=== PATIENT | male | born 1980 | race American Indian/Alaskan Native ===

== ENCOUNTER 2017-09-28 09:30 | Emergency (ER) | payer OTHER ==
[2017-09-28 09:43] VITALS: BP 124/83; PULSE 91; RESP 16; TEMP 98.2; O2SAT 100
--- NOTE | 2017-09-28 10:07 | C.PDOC ---
History Of Present Illness 37-year-old male presents to the emergency department with complaints of nonproductive cough, nasal congestion x1 week. Patient denies nausea/vomiting/ diarrhea, fever/chills, chest pain, shortness of breath, back pains. No other complaints at this time. Time Seen by Provider: 09/28/17 09:44 Chief Complaint (Nursing): Cough, Cold, Congestion History Per: Patient History/Exam Limitations: None Onset/Duration Of Symptoms: Days Current Symptoms Are (Timing): Still Present Symptoms Have Been: Continuous Severity: Mild Past Medical History Reviewed: Historical Data, Nursing Documentation, Vital Signs Vital Signs: Last Vital Signs Temp 98.2 F 09/28/17 09:41 Pulse 91 H 09/28/17 09:41 Resp 16 09/28/17 09:41 BP 124/83 09/28/17 09:41 Pulse Ox 100 09/28/17 10:23 - Medical History PMH: No Chronic Diseases Family History: States: No Known Family Hx - Social History Hx Alcohol Use: No Hx Substance Use: No - Immunization History Hx Influenza Vaccination: Yes Review Of Systems Except As Marked, All Systems Reviewed And Found Negative. Constitutional: Negative for: Fever ENT: Positive for: Nose Congestion Cardiovascular: Negative for: Chest Pain Respiratory: Positive for: Cough. Negative for: Shortness of Breath, Sputum Gastrointestinal: Negative for: Nausea, Vomiting, Abdominal Pain, Diarrhea Genitourinary: Negative for: Dysuria Musculoskeletal: Negative for: Back Pain Skin: Negative for: Rash Physical Exam - Physical Exam Appears: Well, Non-toxic, No Acute Distress Skin: Normal Color, Warm, Dry, No Rash Eye(s): bilateral: Normal Inspection Nose: Normal, No Flaring, Discharge (clear rhinorrhea) Oral Mucosa: Moist Lips: Normal Appearing Throat: Normal, No Erythema, No Exudate Neck: Supple Cardiovascular: Rhythm Regular Respiratory: Normal Breath Sounds, No Rales, No Rhonchi, No Wheezing Neurological/Psych: Oriented x3 ED Course And Treatment O2 Sat by Pulse Oximetry: 100 (RA) Pulse Ox Interpretation: Normal Progress Note: Patient given PO Tessalon and Sudafed in ED. Rxs for same given. Patient instructed to drink plenty of fluids, and follow up with PMD/ clinic in 1-2 days. He understands he should return to ED if symptoms worsen. Disposition Counseled Patient/Family Regarding: Diagnosis, Need For Followup, Rx Given - Disposition Referrals: Dali Jerome MD [Staff Provider] - Disposition: HOME/ ROUTINE Disposition Time: 10:05 Condition: STABLE Additional Instructions: FOLLOW UP WITH YOUR DOCTOR IN 1-2 DAYS USE MEDICATIONS DIRECTED DRINK PLENTY OF FLUIDS RETURN TO ER IF SYMPTOMS WORSEN Prescriptions: Benzonatate [Tessalon Perles] 100 mg PO BID PRN #15 sgl PRN Reason: Cough Phenol/Glycerin [Chloraseptic [place]] 1 spray MM Q6 PRN #1 spray PRN Reason: THROAT PAIN Pseudoephedrine [Sudafed] 60 mg PO Q6 PRN #12 tab PRN Reason: Nasal Congestion Instructions: Cough, Runny Nose, and the Common Cold (DC) Forms: [employer] (Croatian) Print Language: SAO TOMEAN - POA Present On Arrival: None - Clinical Impression Clinical Impression: Viral disease, Upper respiratory infection - Scribe Statement The provider has reviewed the documentation as recorded by the Scribe (Stephanie Dorman) All medical record entries made by the Scribe were at my direction and personally dictated by me. I have reviewed the chart and agree that the record accurately reflects my personal performance of the history, physical exam, medical decision making, and the department course for this patient. I have also personally directed, reviewed, and agree with the discharge instructions and disposition.
== END 2017-09-28 10:16 | disposition home or self-care (01) ==
LOC: C.ER 09:30
DX: J06.9 Acute upper respiratory infection, unspecified (principal); F17.210 Nicotine dependence, cigarettes, uncomplicated

== ENCOUNTER 2017-10-13 18:50 | Emergency (ER) | payer OTHER ==
[2017-10-13] MEDS ORDERED: Sodium Chloride 0.9% 1,000 ML IV ONE (19:53)
--- NOTE | 2017-10-13 19:53 | C.PDOC ---
History Of Present Illness 37 year old male presents to the ED c/o anterior left lateral chest wall pain as well as left flank abdominal pain that has been going on for the past 3-4 days. Patient reports pain worsens with deep breathing and palpation. Patient denies nausea, vomit, diarrhea, SOB, dysuria, hematuria. Chief Complaint (Nursing): Abdominal Pain History Per: Patient History/Exam Limitations: no limitations Onset/Duration Of Symptoms: Days Current Symptoms Are (Timing): Still Present Location Of Pain/Discomfort: Diffuse Radiation Of Pain To:: Chest Quality Of Discomfort: "Pain" Associated Symptoms: denies: Nausea, Vomiting, Constipation Exacerbating Factors: Movement, Deep Breaths Alleviating Factors: None Recent travel outside of the [place]: No Additional History Per: Patient Past Medical History Reviewed: Historical Data, Nursing Documentation, Vital Signs Vital Signs: Last Vital Signs Temp 98.6 F 10/13/17 19:10 Pulse 91 H 10/13/17 19:10 Resp 20 10/13/17 19:10 BP 106/62 10/13/17 19:10 Pulse Ox 96 10/13/17 19:53 - Medical History PMH: No Chronic Diseases Surgical History: No Surg Hx Family History: States: Unknown Family Hx - Social History Hx Alcohol Use: No Hx Substance Use: No - Immunization History Hx Influenza Vaccination: Yes Review Of Systems Constitutional: Negative for: Fever, Chills Cardiovascular: Positive for: Chest Pain Respiratory: Negative for: Cough, Shortness of Breath Gastrointestinal: Positive for: Abdominal Pain Skin: Negative for: Rash Neurological: Negative for: Weakness, Numbness Physical Exam - Physical Exam Appears: Non-toxic, No Acute Distress Skin: Normal Color, Warm, Dry Head: Atraumatic, Normacephalic Eye(s): bilateral: Normal Inspection Nose: No Discharge Oral Mucosa: Moist Neck: Normal ROM, Supple Chest: Symmetrical, Tenderness (left anterior wall ) Cardiovascular: Rhythm Regular, No Murmur Respiratory: Normal Breath Sounds, No Rales, No Rhonchi, No Wheezing Gastrointestinal/Abdominal: Soft, Tenderness (left anterior lumbar, LLQ area ), No Guarding, No Rebound Extremity: Normal ROM, No Tenderness, No Swelling Neurological/Psych: Oriented x3 Gait: Steady ED Course And Treatment O2 Sat by Pulse Oximetry: 96 (On RA) Pulse Ox Interpretation: Normal Medical Decision Making Medical Decision Making: Impression: chest and abdominal pain Plan: * EKG * CXR * UA * Labs * IV fluids * Toradol 30 mg IVP Disposition - Disposition Forms: [facility] (Arabic) - Scribe Statement The provider has reviewed the documentation as recorded by the Scribe Toño Lam All medical record entries made by the Scribe were at my direction and personally dictated by me. I have reviewed the chart and agree that the record accurately reflects my personal performance of the history, physical exam, medical decision making, and the department course for this patient. I have also personally directed, reviewed, and agree with the discharge instructions and disposition.
--- NOTE | 2017-10-13 19:55 | C.PDOC ---
History Of Present Illness 37 year old male presents to the ED c/o anterior left lateral chest wall pain as well as left flank abdominal pain that has been going on for the past 3-4 days. Patient reports pain worsens with deep breathing and palpation. Patient denies nausea, vomit, diarrhea, SOB, dysuria, hematuria. Chief Complaint (Nursing): Abdominal Pain History Per: Patient History/Exam Limitations: clinical condition Onset/Duration Of Symptoms: Days Current Symptoms Are (Timing): Still Present Location Of Pain/Discomfort: Diffuse Radiation Of Pain To:: Chest Quality Of Discomfort: "Pain" Exacerbating Factors: Movement, Deep Breaths Alleviating Factors: None Recent travel outside of the [place]: No Additional History Per: Patient Past Medical History Reviewed: Historical Data, Nursing Documentation, Vital Signs Vital Signs: Last Vital Signs Temp 98.3 F 10/13/17 22:16 Pulse 55 L 10/13/17 22:16 Resp 18 10/13/17 22:16 BP 110/63 10/13/17 22:16 Pulse Ox 96 10/13/17 23:44 - Medical History PMH: No Chronic Diseases Surgical History: No Surg Hx Family History: States: Unknown Family Hx - Social History Hx Alcohol Use: No Hx Substance Use: No - Immunization History Hx Influenza Vaccination: Yes Review Of Systems Constitutional: Negative for: Fever, Chills Cardiovascular: Positive for: Chest Pain. Negative for: Palpitations Respiratory: Negative for: Cough, Shortness of Breath Gastrointestinal: Positive for: Abdominal Pain Skin: Negative for: Rash Neurological: Negative for: Weakness, Numbness Physical Exam - Physical Exam Appears: Non-toxic, No Acute Distress Skin: Normal Color, Warm, Dry Head: Atraumatic, Normacephalic Eye(s): bilateral: Normal Inspection Nose: No Discharge Oral Mucosa: Moist Neck: Normal ROM, Supple Chest: Symmetrical, Tenderness (left anterior wall) Cardiovascular: Rhythm Regular, No Murmur Respiratory: Normal Breath Sounds, No Rales, No Rhonchi, No Wheezing Gastrointestinal/Abdominal: Soft, Tenderness (left anterior lumbar, LLQ area), No Guarding, No Rebound Extremity: Normal ROM, No Tenderness, No Swelling Neurological/Psych: Oriented x3 Gait: Steady ED Course And Treatment - Laboratory Results Result Diagrams: 10/13/17 20:03 10/13/17 20:03 ECG: Interpreted By Me, Viewed By Me ECG Rhythm: Sinus Rhythm ECG Interpretation: Normal, No Acute Changes Interpretation Of ECG: NSR, normal tracings Rate From EC O2 Sat by Pulse Oximetry: 96 (ON RA) Pulse Ox Interpretation: Normal - CT Scan/US CT abdomen/pelvis Other Rad Studies (CT/US): Read By Radiologist, Radiology Report Reviewed CT/US Interpretation: FINDINGS: Lung bases: Unremarkable. No mass. No consolidation. ABDOMEN: Liver: Unremarkable. No suspicious lesions are seen. Gallbladder and bile ducts: The gallbladder is contracted but otherwise normal. Pancreas: Unremarkable. No ductal dilation. Spleen: Unremarkable. No splenomegaly. Adrenals: Unremarkable. No mass. Kidneys and ureters: No obstructing renal stones or hydronephrosis. No solid mass. Normal. appearance of both ureters, and renal pelvises. Stomach and bowel: Bowel loops appear within normal limits, no signs of wall thickening, mucosal. edema, or bowel distention. Appendix: A normal appendix seen in the right lower quadrant. PELVIS: Bladder: The bladder is decompressed but otherwise normal. No stones. Reproductive: Unremarkable as visualized. ABDOMEN and PELVIS: Intraperitoneal space: Unremarkable. No free air. No significant fluid collection. Bones/joints : No acute fracture. No dislocation. Soft tissues: Unremarkable. Vasculature: Unremarkable. No abdominal aortic aneurysm. Lymph nodes: Unremarkable. No enlarged lymph nodes. IMPRESSION: No acute findings or significant abnormalities are noted within the abdomen and pelvis. Thank you for allowing us to participate in the care of your patient. Dictated and Authenticated by: Juan Miguel Hart MD. 10/13/2017 10:14 PM Eastern Time ([place] & [place]) Medical Decision Making Medical Decision Making: Impression: chest and abdominal pain Plan: EKG CXR UA Labs IV fluids Toradol 30 mg IVP Added on CT abdomen/pelvis Labs reviewed, urine indicative of UTI. Patient given initial dose of Cipro in the ED. 23:[address] results with patient, all questions answered. Patient is medically stable for d/c home. Advised to take meds as prescribed and follow up with primary doctor in 2-3 days Disposition Counseled Patient/Family Regarding: Studies Performed, Diagnosis, Need For Followup, Rx Given - Disposition Referrals: [facility] [Outside] Disposition: HOME/ ROUTINE Disposition Time: 23:31 Condition: STABLE Prescriptions: Ciprofloxacin [Cipro] 1 tab PO BID #14 tab Naproxen 375 mg PO TIDPC #20 tablet Instructions: Urinary Tract Infections in Adults, Costochondritis Forms: [facility] (Irish) - POA Present On Arrival: None - Clinical Impression Clinical Impression: Chest wall pain, Urinary tract infection - Scribe Statement The provider has reviewed the documentation as recorded by the Scribe Toño Lam All medical record entries made by the Scribe were at my direction and personally dictated by me. I have reviewed the chart and agree that the record accurately reflects my personal performance of the history, physical exam, medical decision making, and the department course for this patient. I have also personally directed, reviewed, and agree with the discharge instructions and disposition.
[2017-10-13] MEDS ORDERED: Sodium Chloride 0.9% 1,000 ML ONE (20:04)
[2017-10-13 20:06] LABS: BASO # 0.1 K/uL (0.0-0.2); BASO % 1.8 % (0.0-2.0); EOS # 0.1 K/uL (0.0-0.7); EOS % 1.1 % (0.0-4.0); HEMOGLOBIN 14.3 g/dL (12.0-18.0); LYMPH % 29.7 % (20.0-40.0); MEAN CORPUSCULAR HEMOGLOBIN 31.2 pg (27.0-31.0); MEAN CORPUSCULAR HGB CONC 34.3 g/dL (33.0-37.0); MEAN PLATELET VOLUME 7.6 fL (7.2-11.7); MONO # 0.6 K/uL (0.0-0.8); MONO % 9.5 % (0.0-10.0); NEUT # 3.9 K/uL (1.8-7.0); NEUT % 57.9 % (50.0-75.0); NRBC % 0.1 % (0.0-2.0); RBC 4.6 Mil/uL (4.40-5.90); RED CELL DISTRIBUTION WIDTH 13.9 % (11.5-14.5); WHITE BLOOD COUNT 6.8 K/uL (4.8-10.8)
[2017-10-13 20:19] LABS: ALB/GLOB RATIO 1.4 (1.0-2.1); ALBUMIN 4.4 g/dL (3.5-5.0); ALT/SGPT 20 U/L (21-72); AST/SGOT 24 U/L (17-59); BLOOD UREA NITROGEN 14 mg/dL (9-20); CALCIUM 9.3 mg/dl (8.6-10.4); GFR AFRICAN-AMERICAN > 60; GFR NON-AFRICAN AMERICAN > 60; LIPASE 110 U/L (23-300)
[2017-10-13 20:51] LABS: URINE BILIRUBIN NEGATIVE (NEGATIVE); URINE BLOOD NEGATIVE (NEGATIVE); URINE CLARITY Clear (Clear); URINE COLOR Yellow (YELLOW); URINE GLUCOSE (UA) NORMAL (Normal); URINE LEUKOCYTE ESTERASE NEG Leu/uL (Negative); URINE PROTEIN NEGATIVE (NEGATIVE)
[2017-10-13 22:16] VITALS: RESP 18; TEMP 98.3
[2017-10-13 23:58] VITALS: BP 106/65; PULSE 62; O2SAT 98
--- NOTE | 2017-10-14 09:35 | CT ---
PROCEDURE: CT Abdomen and Pelvis without intravenous contrast HISTORY: left flank pain COMPARISON: None. TECHNIQUE: Multiple contiguous axial images were performed through the abdomen and pelvis without intravenous contrast. Subsequently, sagittal and coronal reformatted images were obtained. Radiation dose: Total exam DLP = two hundred fourteen mGy-cm. This CT exam was performed using one or more of the following dose reduction techniques: Automated exposure control, adjustment of the mA and/or kV according to patient size, and/or use of iterative reconstruction technique. FINDINGS: LOWER THORAX: Mild atelectasis at the lung bases. LIVER: Unremarkable. No gross lesion or ductal dilatation. GALLBLADDER AND BILE DUCTS: Contracted gallbladder. PANCREAS: Unremarkable. No gross lesion or ductal dilatation. SPLEEN: Unremarkable. ADRENALS: Unremarkable. No mass. KIDNEYS AND URETERS: Unremarkable. No hydronephrosis. No solid mass. VASCULATURE: Unremarkable. No aortic aneurysm. BOWEL: Unremarkable. No obstruction. No gross mural thickening. APPENDIX: Unremarkable. Normal appendix. PERITONEUM: Unremarkable. No free fluid. No free air. LYMPH NODES: Unremarkable. No enlarged lymph nodes. BLADDER: Decompressed urinary bladder. REPRODUCTIVE: Unremarkable. BONES: No acute fracture. OTHER FINDINGS: None. IMPRESSION: Negative acute. Additional findings as above. These findings were preliminarily reported at 10:14 p.m. on 10/13/[address] Juan Miguel Hart from [employer].
--- NOTE | 2017-10-14 11:23 | CARD ---
APPROVED REPORT EKG Measurement Heart [id number] <Conclusion> Normal sinus rhythm Normal ECG
--- NOTE | 2017-10-14 12:01 | RAD ---
HISTORY: chest pain COMPARISON: No prior. TECHNIQUE: Chest PA and lateral FINDINGS: LUNGS: No active pulmonary disease. PLEURA: No significant pleural effusion identified. No pneumothorax apparent. CARDIOVASCULAR: Normal. OSSEOUS STRUCTURES: No significant abnormalities. VISUALIZED UPPER ABDOMEN: Normal. OTHER FINDINGS: None. IMPRESSION: No active disease.
== END 2017-10-14 | disposition home or self-care (01) ==
LOC: C.ER 18:50
DX: R07.89 Other chest pain (principal); N39.0 Urinary tract infection, site not specified
CPT/HCPCS: 71046; 74176; 80053; 81001; 83690; 84484; 85025; 85378; 87086; 93005; 96374; 99285; J1885; J7040

== ENCOUNTER 2017-10-20 14:51 | Emergency (ER) | payer OTHER ==
[2017-10-20 15:35] VITALS: RESP 18
[2017-10-20] MEDS ORDERED: Sodium Chloride 0.9% 1,000 ML IV ONE (17:44)
--- NOTE | 2017-10-20 18:10 | C.PDOC ---
History Of Present Illness 37 year old male presents to the ED for evaluation of epigastric abdominal pain , vomiting (non-bloody/nonbilious), and diarrhea which began this morning. Patient admits to drinking alcohol yesterday. Patient denies fever, chills, dysuria, and hematuria. Time Seen by Provider: 10/20/17 17:34 Chief Complaint (Nursing): Abdominal Pain History Per: Patient History/Exam Limitations: no limitations Onset/Duration Of Symptoms: Hrs Current Symptoms Are (Timing): Still Present Location Of Pain/Discomfort: Epigastric Radiation Of Pain To:: None Quality Of Discomfort: "Pain" Associated Symptoms: Nausea, Vomiting, Diarrhea. denies: Fever, Chills, Urinary Symptoms Additional History Per: Patient Past Medical History Reviewed: Historical Data, Nursing Documentation, Vital Signs Vital Signs: Last Vital Signs Temp 98 F 10/20/17 15:33 Pulse 72 10/20/17 15:33 Resp 18 10/20/17 15:33 BP 104/69 10/20/17 15:33 Pulse Ox 98 10/20/17 18:44 - Medical History PMH: No Chronic Diseases Surgical History: No Surg Hx Family History: States: Unknown Family Hx - Social History Hx Alcohol Use: Yes Hx Substance Use: No - Immunization History Hx Influenza Vaccination: Yes Review Of Systems Constitutional: Negative for: Fever, Chills Gastrointestinal: Positive for: Nausea, Vomiting, Abdominal Pain (epigastric ), Diarrhea Genitourinary: Negative for: Dysuria, Hematuria Physical Exam - Physical Exam Appears: Non-toxic, No Acute Distress Skin: Normal Color, Warm, Dry Head: Atraumatic, Normacephalic Eye(s): bilateral: Normal Inspection Oral Mucosa: Moist Neck: Supple Chest: Symmetrical, No Deformity, No Tenderness Cardiovascular: Rhythm Regular, No Murmur Respiratory: Normal Breath Sounds, No Rales, No Rhonchi, No Wheezing Gastrointestinal/Abdominal: Soft, Tenderness (epigastric ), No Guarding Extremity: Normal ROM, Capillary Refill (less than 2 seconds ) Neurological/Psych: Oriented x3, Normal Speech, Normal Cognition ED Course And Treatment - Laboratory Results Result Diagrams: 10/20/17 18:20 10/20/17 18:20 O2 Sat by Pulse Oximetry: 98 (on RA) Pulse Ox Interpretation: Normal Medical Decision Making Medical Decision Making: Assessment: abdominal pain, vomiting, diarrhea Plan: * Bloodwork * Pepcid IVP * Toradol IVO * Zofran IVP * IV Fluids * reassess and disposition Progress: Bloodwork ordered and reviewed. Pepcid IVP, Toradol IVP, Zofran IVP and IV Fluids administered. On re-exam, patient is resting comfortably, showing no signs of distress and reports an improvement in symptoms. Patient is stable for discharge and is advised to f/u with PMD/clinic within 1-2 days for further evaluation and/or return to the ED if symptoms persist or worsen. Disposition Counseled Patient/Family Regarding: Studies Performed, Diagnosis, Need For Followup, Rx Given - Disposition Referrals: [facility] [Outside] Disposition: HOME/ ROUTINE Disposition Time: 18:42 Additional Instructions: follow up with medical clinic in 2 days call to make an appointment take medications as needed stop excessive alcohol use return to ER if symptoms worsens or progress Prescriptions: Famotidine [Pepcid] 20 mg PO BID #20 tab Ondansetron ODT [Zofran ODT] 4 mg PO TID PRN #12 odt PRN Reason: Nausea/Vomiting Instructions: Diarrhea in Adolescents and Adults, Nausea and Vomiting, Adult Forms: General Discharge Instructions, [facility] (Latvian), Work Excuse - Clinical Impression Clinical Impression: Alcoholic gastritis - Scribe Statement The provider has reviewed the documentation as recorded by the Scribe (Jaycee Butt) Provider Attestation: All medical record entries made by the Scribe were at my direction and personally dictated by me. I have reviewed the chart and agree that the record accurately reflects my personal performance of the history, physical exam, medical decision making, and the department course for this patient. I have also personally directed, reviewed, and agree with the discharge instructions and disposition.
[2017-10-20 18:26] LABS: BASO % 0.5 % (0.0-2.0); EOS % 0.4 % (0.0-4.0); HEMOGLOBIN 14.7 g/dL (12.0-18.0); LYMPH # 2.6 K/uL (1.0-4.3); LYMPH % 27.7 % (20.0-40.0); MEAN CELL VOLUME 91.6 fL (80.0-94.0); MEAN CORPUSCULAR HEMOGLOBIN 31.3 pg (27.0-31.0); MEAN CORPUSCULAR HGB CONC 34.1 g/dL (33.0-37.0); MEAN PLATELET VOLUME 7.8 fL (7.2-11.7); MONO # 0.6 K/uL (0.0-0.8); MONO % 6.5 % (0.0-10.0); NEUT % 64.9 % (50.0-75.0); RBC 4.69 Mil/uL (4.40-5.90); RED CELL DISTRIBUTION WIDTH 14.2 % (11.5-14.5); WHITE BLOOD COUNT 9.2 K/uL (4.8-10.8)
[2017-10-20] MEDS ORDERED: Sodium Chloride 0.9% 1,000 ML ONE (18:27)
[2017-10-20 18:39] LABS: ALB/GLOB RATIO 1.4 (1.0-2.1); ALBUMIN 4.7 g/dL (3.5-5.0); ALT/SGPT 27 U/L (21-72); AST/SGOT 28 U/L (17-59); BLOOD UREA NITROGEN 15 mg/dL (9-20); CALCIUM 9.6 mg/dl (8.6-10.4); GFR AFRICAN-AMERICAN > 60; GFR NON-AFRICAN AMERICAN > 60; LIPASE 88 U/L (23-300)
[2017-10-20 19:04] VITALS: BP 166/85; PULSE 60; TEMP 97.9; O2SAT 99
== END 2017-10-20 19:04 | disposition home or self-care (01) ==
LOC: C.ER 14:51
DX: K29.20 Alcoholic gastritis without bleeding (principal)
CPT/HCPCS: 80053; 83690; 85025; 96374; 96375; 99284; J1885; J2405; J7040

== ENCOUNTER 2017-10-28 13:55 | Emergency (ER) | payer SELFPAY ==
[2017-10-28 14:14] VITALS: BP 124/78; PULSE 82; RESP 18; TEMP 98.8; O2SAT 100
--- NOTE | 2017-10-28 15:19 | C.PDOC ---
History Of Present Illness 37 year old male presents to the ED c/o on going chest congestion, dry cough. Patient reports he recently finished a course of antibiotics that he finished 4 days ago. Patient is a smoker. Patient denies fever, chills, nausea, vomit, diarrhea, recent travel, sick contacts. Time Seen by Provider: 10/28/17 14:17 Chief Complaint (Nursing): Cough, Cold, Congestion History Per: Patient History/Exam Limitations: no limitations Onset/Duration Of Symptoms: Days Current Symptoms Are (Timing): Still Present Location Of Pain: Throat Sick Contacts (Context): None Associated Symptoms: Cough Recent travel outside of the [place]: No Additional History Per: Patient Past Medical History Reviewed: Historical Data, Nursing Documentation, Vital Signs Vital Signs: Last Vital Signs Temp 98.8 F 10/28/17 14:11 Pulse 82 10/28/17 14:11 Resp 18 10/28/17 14:11 BP 124/78 10/28/17 14:11 Pulse Ox 100 10/28/17 15:19 - Medical History PMH: No Chronic Diseases Surgical History: No Surg Hx Family History: States: Unknown Family Hx - Social History Hx Alcohol Use: Yes Hx Substance Use: No - Immunization History Hx Influenza Vaccination: Yes Review Of Systems Except As Marked, All Systems Reviewed And Found Negative. ENT: Positive for: Nose Congestion Respiratory: Positive for: Cough Physical Exam - Physical Exam Appears: Non-toxic, No Acute Distress Skin: Normal Color, Warm, Dry Head: Atraumatic, Normacephalic Eye(s): bilateral: Normal Inspection Ear(s): Bilateral: Normal Nose: No Discharge Oral Mucosa: Moist Throat: Normal, No Erythema, No Exudate Respiratory: Normal Breath Sounds, No Rales, No Rhonchi, No Wheezing Neurological/Psych: Oriented x3 Gait: Steady ED Course And Treatment O2 Sat by Pulse Oximetry: 100 (ON RA) Pulse Ox Interpretation: Normal - Radiology CXR: Interpreted by Me, Viewed By Me CXR Interpretation: Yes: No Acute Disease. No: Infiltrates Medical Decision Making Medical Decision Making: Impression: URI Patient will be D/C home and advised with his PMD in 2 days. Disposition Counseled Patient/Family Regarding: Studies Performed, Diagnosis, Need For Followup, Rx Given - Disposition Referrals: [facility] at [facility] [Outside] Disposition: HOME/ ROUTINE Disposition Time: 15:17 Condition: STABLE Additional Instructions: follow up with your doctor or medical clinic in 2 days call to make an appointment continue your medications at home return to ER if symptoms worsens or progress Prescriptions: Albuterol 0.083% [Albuterol Sulfate 3 Ml] 3 ml IH Q6 PRN #50 neb PRN Reason: Cough And Congestion Benzonatate [Tessalon Perles] 100 mg PO BID PRN #14 tab PRN Reason: Cough And Congestion Instructions: Upper Respiratory Infection (ED) Forms: General Discharge Instructions, [facility] (Andorran), Work Excuse - Clinical Impression Clinical Impression: Upper respiratory infection - Scribe Statement The provider has reviewed the documentation as recorded by the Scribe Toño Lam All medical record entries made by the Scribe were at my direction and personally dictated by me. I have reviewed the chart and agree that the record accurately reflects my personal performance of the history, physical exam, medical decision making, and the department course for this patient. I have also personally directed, reviewed, and agree with the discharge instructions and disposition.
--- NOTE | 2017-10-28 17:47 | RAD ---
HISTORY: Cough COMPARISON: 10/13/2017 TECHNIQUE: Chest PA and lateral FINDINGS: LUNGS: No active pulmonary disease. PLEURA: No significant pleural effusion identified. No pneumothorax apparent. CARDIOVASCULAR: Normal. OSSEOUS STRUCTURES: No significant abnormalities. VISUALIZED UPPER ABDOMEN: Normal. OTHER FINDINGS: None. IMPRESSION: No active disease.
== END 2017-10-28 15:30 | disposition home or self-care (01) ==
LOC: C.ER 13:55
DX: J06.9 Acute upper respiratory infection, unspecified (principal); F17.210 Nicotine dependence, cigarettes, uncomplicated

== ENCOUNTER 2018-02-22 18:48 | Emergency (ER) | payer SELFPAY ==
[2018-02-22 18:57] VITALS: BMI 24.0
[2018-02-22 18:59] VITALS: BP 106/65; PULSE 74; RESP 18; TEMP 98.4; O2SAT 100
--- NOTE | 2018-02-22 19:07 | C.PDOC ---
History Of Present Illness 28-year-old male, presents to the emergency department with complaints of pain to right wisdom tooth ongoing for the past few days. Pt took OTC pain meds with minimal relief. He denies any nausea/vomiting, fever. No other complaints at this time. Time Seen by Provider: 02/22/18 19:02 Chief Complaint (Nursing): Dental Pain Past Medical History Reviewed: Historical Data, Nursing Documentation, Vital Signs Vital Signs: Last Vital Signs Temp 98.4 F 02/22/18 18:57 Pulse 74 02/22/18 18:57 Resp 18 02/22/18 18:57 BP 106/65 02/22/18 18:57 Pulse Ox 100 02/22/18 19:43 Family History: States: No Known Family Hx - Social History Hx Alcohol Use: Yes Hx Substance Use: No - Immunization History Hx Influenza Vaccination: Yes Review Of Systems Constitutional: Negative for: Fever ENT: Positive for: Other (tooth pain). Negative for: Ear Pain, Ear Discharge, Nose Discharge, Nose Congestion, Throat Pain Gastrointestinal: Negative for: Nausea, Vomiting Neurological: Negative for: Headache, Dizziness Physical Exam - Physical Exam Appears: Non-toxic, No Acute Distress Skin: Normal Color, Warm, Dry, No Rash Head: Atraumatic, Normacephalic Eye(s): bilateral: Normal Inspection Nose: Normal Oral Mucosa: Moist Lips: Normal Appearing Teeth: Other (Right lower wisdom tooth, impacted, +gingival swelling. No abscess , no blood) Throat: No Erythema, No Exudate, No Drooling, No Mass Neck: Normal ROM, Supple Respiratory: No Accessory Muscle Use (no apparent respiratory distress) Neurological/Psych: Oriented x3, Normal Speech ED Course And Treatment O2 Sat by Pulse Oximetry: 100 Medical Decision Making Medical Decision Making: Plan: Pt treated with Penicillin and Tyl/Codeine for pain, discharged for outpatient f /u with dentist. Disposition Counseled Patient/Family Regarding: Diagnosis, Need For Followup, Rx Given - Disposition Referrals: Hector Sheth [Medical Doctor] - Disposition: HOME/ ROUTINE Disposition Time: 19:20 Condition: GOOD Additional Instructions: FOLLOW UP WITH DENTIST TAKE PAIN MEDICINE NEEDED TAKE ANTIBIOTIC Prescriptions: Acetaminophen with Codeine [Tylenol with Codeine No. 3 300 mg-30 mg] 1 tab PO Q8 PRN #20 tab PRN Reason: Pain, Moderate (4-7) Penicillin VK [Penicillin VK Tab] 1 tab PO BID #20 tab Instructions: Tooth Decay, Adult (DC) Forms: [facility] (Telugu) - POA Present On Arrival: None - Clinical Impression Clinical Impression: Dental caries - Scribe Statement The provider has reviewed the documentation as recorded by the Scribe (Stephanie Dorman) All medical record entries made by the Scribe were at my direction and personally dictated by me. I have reviewed the chart and agree that the record accurately reflects my personal performance of the history, physical exam, medical decision making, and the department course for this patient. I have also personally directed, reviewed, and agree with the discharge instructions and disposition.
[2018-02-22] MEDS ORDERED: Acetaminophen-Codeine 300/30 mg Tab PO STA (19:08)
[2018-02-22] MEDS ORDERED: Acetaminophen-Codeine 300/30 mg Tab PO ONE (19:14)
== END 2018-02-22 19:20 | disposition home or self-care (01) ==
LOC: C.ER 18:48
DX: K02.9 Dental caries, unspecified (principal)

== ENCOUNTER 2018-03-02 17:59 | Emergency (ER) | payer OTHER ==
[2018-03-02 17:59] VITALS: BMI 24.0
[2018-03-02 18:26] VITALS: BP 132/74; PULSE 73; RESP 16; TEMP 97.8; O2SAT 98
--- NOTE | 2018-03-02 19:08 | C.PDOC ---
History Of Present Illness 37 year old male presents to the ED c/o back pain. Patient reports that yesterday was helping his cousin move some furniture which caused him to have back pain. Patient states pain worsens with movement and when walking pain radiates to the leg. Patient states he has been taking Motrin for pain. Patient denies fall, weakness, numbness, dysuria, hematuria, bowel incontinence, saddle anesthesia. Time Seen by Provider: 03/02/18 18:29 Chief Complaint (Nursing): Back Pain History Per: Patient History/Exam Limitations: no limitations Onset/Duration Of Symptoms: Days Current Symptoms Are (Timing): Still Present Quality Of Discomfort: "Pain" Severity: None Previous Symptoms: None Exacerbating Factor(s): Movement Recent travel outside of the [place]: No Past Medical History Reviewed: Historical Data, Nursing Documentation, Vital Signs Vital Signs: Last Vital Signs Temp 97.8 F 03/02/18 18:24 Pulse 73 03/02/18 18:24 Resp 16 03/02/18 18:24 BP 132/74 03/02/18 18:24 Pulse Ox 98 03/02/18 20:02 - Medical History PMH: No Chronic Diseases Surgical History: No Surg Hx Family History: States: Unknown Family Hx - Social History Hx Alcohol Use: Yes Hx Substance Use: No - Immunization History Hx Influenza Vaccination: Yes Review Of Systems Constitutional: Negative for: Fever, Chills Cardiovascular: Negative for: Chest Pain, Palpitations Respiratory: Negative for: Cough, Shortness of Breath Gastrointestinal: Positive for: Abdominal Pain. Negative for: Nausea, Vomiting Musculoskeletal: Positive for: Back Pain Skin: Negative for: Rash Neurological: Negative for: Weakness, Numbness Physical Exam - Physical Exam Appears: Non-toxic, No Acute Distress Skin: Normal Color, Warm, Dry, No Rash Head: Atraumatic, Normacephalic Eye(s): bilateral: Normal Inspection, PERRL, EOMI Oral Mucosa: Moist Neck: Normal ROM, Supple Chest: Symmetrical Cardiovascular: Rhythm Regular, No Friction Rub, No Murmur Respiratory: Normal Breath Sounds, No Rales, No Rhonchi, No Wheezing Gastrointestinal/Abdominal: Soft, No Tenderness, No Guarding, No Rebound Back: No Vertebral Tenderness, Muscle Spasm (left sided lower back) Extremity: Normal ROM, No Tenderness, No Swelling Neurological/Psych: Oriented x3, Normal Speech, Normal Motor, Normal Sensation Gait: Steady ED Course And Treatment O2 Sat by Pulse Oximetry: 98 (ON RA) Pulse Ox Interpretation: Normal Medical Decision Making Medical Decision Making: Plan: * Flexeril 10 mg PO On re-exam, the patient is resting comfortably. Lungs are CTA, heart is RRR, abdomen is soft, non-tender and tolerating PO well. Follow up with the medical doctor within 1-2 days. Return if worsened. Disposition - Disposition Referrals: [facility] [Outside] Disposition: HOME/ ROUTINE Disposition Time: 19:04 Condition: GOOD Additional Instructions: Follow up with the medical doctor within 1-2 days. Return if worsened. 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 - Scribe Statement The provider has reviewed the documentation as recorded by the Scribe Toño Lam All medical record entries made by the Scribe were at my direction and personally dictated by me. I have reviewed the chart and agree that the record accurately reflects my personal performance of the history, physical exam, medical decision making, and the department course for this patient. I have also personally directed, reviewed, and agree with the discharge instructions and disposition.
== END 2018-03-02 19:21 | disposition home or self-care (01) ==
LOC: C.ER 17:59
DX: M62.830 Muscle spasm of back (principal)

== ENCOUNTER 2018-03-15 14:11 | Emergency (ER) | payer OTHER ==
[2018-03-15 14:11] VITALS: BMI 24.0
[2018-03-15] MEDS ORDERED: Sodium Chloride 0.9% 1,000 ML IV ONE (15:17)
--- NOTE | 2018-03-15 15:17 | C.PDOC ---
History Of Present Illness 37 y/o male presents to ED c/o n/v/d onset this morning. Pt states he was heavily drinking last night. He complains of mild abdominal cramping "from all the vomiting". Denies other associated symptoms. NVD ONSET THIS MORNING. PS WAS HEAVILY DRINKING LAST NIGHT. MILD ABD CRAMPING "FROM ALL THE VOMITING". DENIES OTHER ASSOC SX EXAM MILD DIST NONTOXIC ABD SOFT NT ND NO R/G REMAINDER NEG Time Seen by Provider: 03/15/18 14:52 Chief Complaint (Nursing): Abdominal Pain History Per: Patient History/Exam Limitations: no limitations Onset/Duration Of Symptoms: Days Current Symptoms Are (Timing): Still Present Quality Of Discomfort: Cramping Associated Symptoms: Nausea, Vomiting, Diarrhea. denies: Loss Of Appetite, Back Pain, Chest Pain, Constipation, Urinary Symptoms Exacerbating Factors: None Alleviating Factors: None Recent travel outside of the [place]: No Additional History Per: Patient Past Medical History Reviewed: Historical Data, Nursing Documentation, Vital Signs Vital Signs: Last Vital Signs Temp 98.6 F 03/15/18 14:19 Pulse 73 03/15/18 14:19 Resp 17 03/15/18 14:19 BP 118/73 03/15/18 14:19 Pulse Ox 96 03/15/18 15:33 Family History: States: Unknown Family Hx - Social History Hx Alcohol Use: Yes Hx Substance Use: No - Immunization History Hx Tetanus Toxoid Vaccination: Yes Hx Influenza Vaccination: Yes Hx Pneumococcal Vaccination: No Review Of Systems Except As Marked, All Systems Reviewed And Found Negative. Constitutional: Negative for: Fever, Chills Gastrointestinal: Positive for: Nausea, Vomiting, Abdominal Pain, Diarrhea. Negative for: Constipation, Melena, Hematochezia, Hematemesis Genitourinary: Negative for: Dysuria, Frequency, Hematuria Musculoskeletal: Negative for: Back Pain Physical Exam - Physical Exam Appears: Non-toxic, Other (Mild distress) Skin: Normal Color, Warm, Dry Head: Atraumatic, Normacephalic Eye(s): bilateral: Normal Inspection Oral Mucosa: Moist Cardiovascular: Rhythm Regular Respiratory: Normal Breath Sounds, No Rales, No Rhonchi, No Wheezing Gastrointestinal/Abdominal: Soft, No Tenderness, No Distention, No Guarding, No Rebound Back: No CVA Tenderness Extremity: Normal ROM Neurological/Psych: Oriented x3, Normal Speech ED Course And Treatment O2 Sat by Pulse Oximetry: 96 (RA) Pulse Ox Interpretation: Normal Medical Decision Making Medical Decision Making: Plan: Pepcid Zofran IV fluids Disposition Counseled Patient/Family Regarding: Diagnosis, Need For Followup, Rx Given - Disposition Referrals: [facility] [Outside] [facility] [Outside] Disposition: HOME/ ROUTINE Disposition Time: 16:52 Condition: IMPROVED Prescriptions: Ondansetron [Zofran Odt] 4 mg PO TID PRN #9 odt PRN Reason: Nausea/Vomiting Instructions: Nausea and Vomiting, Adult (DC) Forms: [employer] (Cuban) - Clinical Impression Clinical Impression: Nausea, Vomiting - Scribe Statement The provider has reviewed the documentation as recorded by the Scribe KP All medical record entries made by the Scribe were at my direction and personally dictated by me. I have reviewed the chart and agree that the record accurately reflects my personal performance of the history, physical exam, medical decision making, and the department course for this patient. I have also personally directed, reviewed, and agree with the discharge instructions and disposition.
[2018-03-15] MEDS ORDERED: Sodium Chloride 0.9% 1,000 ML ONE (15:26)
[2018-03-15 17:13] VITALS: BP 114/69; PULSE 66; RESP 15; TEMP 98.4; O2SAT 99
== END 2018-03-15 17:21 | disposition home or self-care (01) ==
LOC: C.ER 14:11
DX: R11.2 Nausea with vomiting, unspecified (principal)
CPT/HCPCS: 96361; 96374; 96375; 99284; J2405; J7030